=== PATIENT | female | born 1960 | race Caucasian/White ===

== ENCOUNTER 2016-10-31 13:10 | Emergency (ER) | payer OTHER ==
[~2016-10-31] VITALS: Ht 170.2 cm; Wt 84.9 kg
[~2016-10-31 13:10] MED LIST: ALPR1TAB6 PO; ASCO500T8 PO; CHOL10003 PO; CINN500C2 PO; CYAN1TAB29 PO; FAMO40TA4 PO; FING0.5C3 PO; HYDR50TA13 PO; IBUP1TAB11 PO; LAMO100T PO; MULT-257 PO; MULT-672 PO; RISP2TAB3 PO; ZIPR80CA3 PO; magnesium PO
[2016-10-31] MEDS ORDERED: PANTOPRAZOLE 40 MG IV IVP ONE (13:30)
[2016-10-31] MEDS ORDERED: ONDANSETRON 2MG/ML, 2ML IVPush ONE (13:30)
[2016-10-31] MEDS ORDERED: SODIUM CHLORIDE 0.9% 1,000ML IVBOLUS ONE (13:30)
[2016-10-31] MEDS ORDERED: HYDROmorphone 1 MG/ML, 1ML IVPush PRN (13:30)
[2016-10-31] MEDS ORDERED: MAALOX/HYOSCYAMINE/LIDOCAINE 45 ML BOTTLE PO ONE (13:30)
[2016-10-31] MEDS ORDERED: PANT40TA5 PO (13:34)
[2016-10-31] MEDS ORDERED: PANTOPRAZOLE 40 MG IV ONE (13:41)
[2016-10-31] MEDS ORDERED: HYDROmorphone 1 MG/ML, 1ML ONE (13:41)
[2016-10-31] MEDS ORDERED: ONDANSETRON 2MG/ML, 2ML ONE (13:42)
[2016-10-31] MEDS ORDERED: MAALOX/HYOSCYAMINE/LIDOCAINE 45 ML BOTTLE ONE (13:42)
[2016-10-31 13:50] LABS: HEMOGLOBIN 12.7 g/dL (11.7-16.4)
[2016-10-31 14:01] LABS: ASPARTATE AMINO TRANSFERASE 31 U/L (15-37); BLOOD UREA NITROGEN 12 mg/dL (7-18)
[2016-10-31] MEDS ORDERED: OXYcodone/APAP 5/325MG TABLET ONE (15:14)
[2016-10-31] MEDS ORDERED: OXYcodone/APAP 10/325MG TABLET ONE (15:17)
[2016-10-31] MEDS ORDERED: OXYcodone/APAP 10/325MG TABLET PO ONE (15:30)
[2016-10-31 16:16] VITALS: BP 119/77
== END 2016-10-31 16:18 | disposition home or self-care (01) ==
LOC: ED 13:52
DX: R10.13 Epigastric pain (principal); Z90.49 Acquired absence of other specified parts of digestive tract; Z90.710 Acquired absence of both cervix and uterus; Z88.6 Allergy status to analgesic agent; Z87.891 Personal history of nicotine dependence
CPT/HCPCS: 36415; 80053; 83690; 85025; 86677; 96361; 96374; 96375; 99284; C9113; J1170; J2405; J7030

== ENCOUNTER → 2017-08-03 | Outpatient (CLI) | payer OTHER ==
[~2017-08-03] MED LIST changes: +PANT40TA5 PO
== END ==
LOC: CFH 10:25
PROVIDERS: ATTEND Genetic Counselor, MS
DX: M51.26 Other intervertebral disc displacement, lumbar region (principal); M48.07 Spinal stenosis, lumbosacral region
CPT/HCPCS: 72148

== ENCOUNTER 2017-10-16 05:18 | Inpatient (IN) | payer OTHER ==
[2017-10-15 11:39] LABS: MICROSCOPIC NOT IND
[2017-10-15 11:40] LABS: BASOPHILS # (AUTO) 0.01 x10^3/uL (0-0.1); BASOPHILS % (AUTO) 0 % (0-1); EOSINOPHILS # (AUTO) 0.13 x10^3/uL (0-0.4); EOSINOPHILS % (AUTO) 3 % (1-7); LYMPHOCYTES # (AUTO) 0.33 x10^3/uL (1-3.4); LYMPHOCYTES % (AUTO) 7 % (22-44); MD NO; MEAN CORPUSCULAR HEMOGLOBIN 32.1 pg (27.0-34.8); MEAN CORPUSCULAR VOLUME 94.3 fL (80-100); MEAN PLATELET VOLUME 7.4 fL (7.4-10.4); MONOCYTES # (AUTO) 0.44 x10^3/uL (0.2-0.8); MONOCYTES % (AUTO) 10 % (2-9); NEUTROPHILS # (AUTO) 3.69 x10^3/uL (1.8-6.8); NEUTROPHILS % (AUTO) 80 % (42-75); PLATELET COUNT 302 x10^3/uL (130-400); RED BLOOD COUNT 4.12 x10^6/uL (3.82-5.3); RED CELL DISTRIBUTION WIDTH 12.3 % (9.6-15.2)
[2017-10-15 11:47] LABS: CULTURE INDICATED? NO; INTERNATIONAL NORMALIZED RATIO 1.05 (0.93-1.1); PROTHROMBIN TIME 10.9 Seconds (9.6-11.5)
[2017-10-15 11:50] LABS: ANION GAP 5 mmol/L (5-15); CALCIUM 8.7 mg/dL (8.5-10.1); CHLORIDE 106 mmol/L (98-107); CREATININE 0.96 mg/dL (0.55-1.02)
[~2017-10-16] VITALS: Ht 170.2 cm; Wt 104.2 kg
[~2017-10-16 05:18] MED LIST changes: +CALCIUM PO; +DIPH50CA62 PO; +GINK120T3 PO; +METH750T2 PO; +MIRALAX; +OXYC1TAB8 PO; +TURMERIC PO; +[UNRECOGNIZED DRUG - CODE] PO
[2017-10-16 05:43] VITALS: BP 119/79
[2017-10-16] MEDS ORDERED: BUPIVACAINE/PF 0.5% ONE (06:58)
[2017-10-16] MEDS ORDERED: BACITRACIN 50,000 UNIT ONE (06:59)
[2017-10-16] MEDS ORDERED: VANCOMYCIN 1,000 MG ONE (06:59)
[2017-10-16] MEDS ORDERED: EPINEPHRINE 1 MG/ML, 1ML ONE (06:59)
[2017-10-16] MEDS ORDERED: THROMBIN 5,000 UNIT VIAL TP ONE (06:59)
[2017-10-16] MEDS ORDERED: PROPOFOL 10 MG/ML, 20ML ONE (07:07)
[2017-10-16] MEDS ORDERED: ROCURONIUM 10MG/ML,5ML ONE (07:07)
[2017-10-16] MEDS ORDERED: CEFAZOLIN 1,000 MG ONE ×2 (07:08)
[2017-10-16] MEDS ORDERED: FENTANYL PF 250 MCG/5ML ONE (07:20)
[2017-10-16] MEDS ORDERED: MIDAZOLAM 1 MG/ML, 2ML ONE (07:20)
[2017-10-16] MEDS ORDERED: hydrALAzine 20 MG/ML, 1ML IV PRN (08:00)
[2017-10-16] MEDS ORDERED: EPHEDRINE 50 MG/ML, 1ML IVPush PRN (08:00)
[2017-10-16] MEDS ORDERED: OXYcodone 5 MG/5 ML ORAL.SOL UDC PO PRN (08:00)
[2017-10-16] MEDS ORDERED: HYDROmorphone 1 MG/ML, 1ML IV PRN (08:00)
[2017-10-16] MEDS ORDERED: FENTANYL PF 100 MCG/2ML IV PRN (08:00)
[2017-10-16] MEDS ORDERED: PROMETHAZINE 25 MG/ML, 1ML IV PRN (08:00)
[2017-10-16] MEDS ORDERED: ACETAMINOPHEN 325 MG TABLET PO PRN (08:00)
[2017-10-16] MEDS ORDERED: DIAZEPAM 5 MG/ML, 2ML IVPush PRN (08:00)
[2017-10-16] MEDS ORDERED: METOPROLOL 1 MG/ML, 5ML IV PRN (08:00)
[2017-10-16] MEDS ORDERED: MEPERIDINE/PF 25MG/0.5ML IVPush PRN (08:00)
[2017-10-16] MEDS ORDERED: ONDANSETRON 2MG/ML, 2ML IVPush PRN (08:00)
[2017-10-16] MEDS ORDERED: LABETALOL 5MG/ML, 20ML IV PRN ×2 (08:00→10:00)
[2017-10-16] MEDS ORDERED: ALBUTEROL SULFATE 2.5 MG/3 ML NPPB PRN (08:00)
[2017-10-16] MEDS ORDERED: NEOSTIGMINE 1 MG/ML, 10ML ONE (08:04)
[2017-10-16] MEDS ORDERED: GLYCOPYRROLATE 0.4 MG/2 ML, 2ML ONE (08:04)
[2017-10-16] MEDS ORDERED: ONDANSETRON 2MG/ML, 2ML ONE ×2 (08:04→08:28)
[2017-10-16] MEDS ORDERED: DEXAMETHASONE 4 MG/ML, 1ML ONE (08:04)
[2017-10-16] MEDS ORDERED: OXYcodone 5 MG/5 ML ORAL.SOL UDC ONE (08:27)
[2017-10-16 09:22] VITALS: BP 118/84
[2017-10-16] MEDS ORDERED: HYDROmorphone 1 MG/ML, 1ML IVPush PRN (10:00)
[2017-10-16] MEDS: D5%-0.9% NACL+KCL 20MEQ 1,000 ML IV SCH ×2 (10:00→20:21)
[2017-10-16] MEDS ORDERED: METHOCARBAMOL 1,000 MG in DEXTROSE 5% 100 ML IV ONE (10:00)
[2017-10-16] MEDS ORDERED: PROMETHAZINE 25 MG/ML, 1ML IM PRN (10:00)
[2017-10-16] MEDS ORDERED: BISACODYL 10 MG SUPP PR PRN (10:00)
[2017-10-16] MEDS ORDERED: MAGNESIUM HYDROXIDE 8%, 30ML UDC PO PRN (10:00)
[2017-10-16] MEDS ORDERED: VANCOMYCIN PER PHARMACY MC PRN (10:00)
[2017-10-16] MEDS ORDERED: ONDANSETRON 2MG/ML, 2ML IV PRN (10:00)
[2017-10-16] MEDS ORDERED: PHARMACOKINETIC CONSULTATION MC ONE (10:00)
[2017-10-16] MEDS ORDERED: DIPHENHYDRAMINE 50 MG CAPSULE PO PRN (10:00)
[2017-10-16] MEDS ORDERED: OXYcodone/APAP 10/325MG TABLET PO PRN (10:00)
[2017-10-16] MEDS ORDERED: PHARMACOKINETIC MONITORING MC PRN (10:00)
[2017-10-16] MEDS ORDERED: PANTOPROZOLE 40MG TABLET ONE (12:05)
[2017-10-16] MEDS: CEFEPIME 2 GM in DEXTROSE 5% 100 ML IV SCH ×2 (12:07→20:21)
[2017-10-16 13:32] VITALS: BP 120/71
[2017-10-16] MEDS: METHOCARBAMOL 750 MG TABLET PO SCH ×2 (13:33→21:26)
[2017-10-16] MEDS: PANTOPRAZOLE 20MG TABLET PO SCH (13:43)
[2017-10-16] MEDS: VANCOMYCIN 1,500 MG in SODIUM CHLORIDE 0.9% 250 ML IV SCH (13:43)
[2017-10-16] MEDS: METHOCARBAMOL 750 MG in DEXTROSE 5% 100 ML IV SCH (17:18)
[2017-10-16 18:46] VITALS: BP 115/73
[2017-10-16] MEDS ORDERED: MAGNESIUM CITRATE 300ML ORAL SOL PO PRN (20:30)
[2017-10-16] MEDS ORDERED: FINGOLIMOD 0.5 MG HOMEMEDPO SCH ×2 (21:00)
[2017-10-16] MEDS ORDERED: ZIPRASIDONE 40MG CAPSULE PO SCH (21:00)
[2017-10-16] MEDS ORDERED: DIPHENHYDRAMINE 50 MG CAPSULE PO SCH (21:00)
[2017-10-16] MEDS ORDERED: ZOLPIDEM 5MG TABLET PO PRN (21:00)
[2017-10-16] MEDS: LAMOTRIGINE 100 MG TABLET PO SCH (21:27)
[2017-10-17] MEDS: METHOCARBAMOL 750 MG in DEXTROSE 5% 100 ML IV SCH ×2 (01:19→08:12)
[2017-10-17] MEDS: VANCOMYCIN 1,500 MG in SODIUM CHLORIDE 0.9% 250 ML IV SCH ×2 (02:28→13:13)
[2017-10-17 02:54] VITALS: BP 102/67
[2017-10-17] MEDS: CEFEPIME 2 GM in DEXTROSE 5% 100 ML IV SCH ×2 (04:37→12:18)
[2017-10-17 05:18] LABS: CREATININE 0.87 mg/dL (0.55-1.02)
[2017-10-17] MEDS: D5%-0.9% NACL+KCL 20MEQ 1,000 ML IV SCH (06:00)
[2017-10-17 07:38] VITALS: BP 97/58
[2017-10-17] MEDS: PANTOPRAZOLE 20MG TABLET PO SCH (08:32)
[2017-10-17] MEDS: LAMOTRIGINE 100 MG TABLET PO SCH (08:32)
[2017-10-17] MEDS: METHOCARBAMOL 750 MG TABLET PO SCH (08:32)
[2017-10-17] MEDS ORDERED: FINGOLIMOD HCL 0.5 MG HOMEMEDPO SCH (09:00)
[2017-10-17] MEDS ORDERED: SENNA/DOCUSATE TABLET PO SCH (09:00)
[2017-10-17] MEDS ORDERED: CLIN300C8 PO (10:01)
[2017-10-17 12:48] VITALS: BP 114/77
[2017-10-18] MEDS ORDERED: METHOCARBAMOL 750 MG TABLET PO SCH (10:00)
== END 2017-10-17 15:35 | disposition home or self-care (01) | DRG 858 ==
LOC: 4NOR 05:18 → EDSTATUS 07:30
PROVIDERS: ADMIT Neurological Surgery; ATTEND Neurological Surgery
PROC: 0JB70ZZ Excision of Back Subcutaneous Tissue and Fascia, Open Approach (ICD-10-PCS; 2017-10-16)
PROC: 01NB0ZZ Release Lumbar Nerve, Open Approach (ICD-10-PCS; principal; 2017-10-16 07:30)
DX: T81.4XXA Infection following a procedure, initial encounter (principal); Y83.8 Other surgical procedures as the cause of abnormal reaction of the patient, or of later complication, without mention of misadventure at the time of the procedure; Y92.89 Other specified places as the place of occurrence of the external cause
CPT/HCPCS: 36415; 80048; 81003; 82565; 84520; 85025; 85610; 85730; 87070; 87075; 87205; J0171; J0690; J1100; J2250; J2405; J2704; J2710; J3010; J3370; J3490; J2800; J3480; J7050

== ENCOUNTER 2017-11-21 01:16 | Emergency (ER) | payer OTHER ==
[~2017-11-21] VITALS: Ht 170.2 cm; Wt 88.5 kg
[~2017-11-21 01:16] MED LIST changes: +CLIN300C8 PO
[2017-11-21 01:22] VITALS: BP 126/81
[2017-11-21] MEDS ORDERED: LORazepam 2 MG/ML, 1ML ONE (01:51)
[2017-11-21] MEDS ORDERED: SODIUM CHLORIDE FLUSH 10ML SYR IVF ONE (02:00)
[2017-11-21] MEDS ORDERED: LORazepam 2 MG/ML, 1ML IVPush ONE (02:00)
[2017-11-21 02:02] LABS: BASOPHILS # (AUTO) 0.01 x10^3/uL (0-0.1); BASOPHILS % (AUTO) 0 % (0-1); EOSINOPHILS # (AUTO) 0.05 x10^3/uL (0-0.4); EOSINOPHILS % (AUTO) 1 % (1-7); LYMPHOCYTES # (AUTO) 0.44 x10^3/uL (1-3.4); LYMPHOCYTES % (AUTO) 10 % (22-44); MD NO; MEAN CORPUSCULAR HEMOGLOBIN 32.3 pg (27.0-34.8); MEAN CORPUSCULAR HGB CONC 34.8 g/dL (32.4-35.8); MEAN CORPUSCULAR VOLUME 92.8 fL (80-100); MEAN PLATELET VOLUME 7.5 fL (7.4-10.4); MONOCYTES # (AUTO) 0.37 x10^3/uL (0.2-0.8); MONOCYTES % (AUTO) 9 % (2-9); NEUTROPHILS # (AUTO) 3.37 x10^3/uL (1.8-6.8); NEUTROPHILS % (AUTO) 80 % (42-75); PLATELET COUNT 358 x10^3/uL (130-400); RED BLOOD COUNT 4.06 x10^6/uL (3.82-5.3)
[2017-11-21 02:10] LABS: ALANINE AMINOTRANSFERASE 81 U/L (12-78); ALBUMIN 3.8 g/dL (3.4-5.0); ANION GAP 9 mmol/L (5-15); CHLORIDE 107 mmol/L (98-107)
[2017-11-21 02:15] LABS: ALKALINE PHOSPHATASE 128 U/L (45-117); BILIRUBIN,TOTAL 0.5 mg/dL (0.2-1.0); TOTAL PROTEIN 7.3 g/dL (6.4-8.2); TROPONIN I < 0.015 ng/mL (0.000-0.045)
[2017-11-21] MEDS ORDERED: MAALOX/HYOSCYAMINE/LIDOCAINE 45 ML BTL ONE (02:59)
[2017-11-21] MEDS ORDERED: MAALOX/HYOSCYAMINE/LIDOCAINE 45 ML BTL PO ONE (03:00)
== END 2017-11-21 03:11 | disposition home or self-care (01) ==
LOC: ED 03:05
DX: F41.1 Generalized anxiety disorder (principal); R07.89 Other chest pain; R06.4 Hyperventilation; R10.13 Epigastric pain; F32.9 Major depressive disorder, single episode, unspecified; G35 Multiple sclerosis; R11.2 Nausea with vomiting, unspecified; Z87.891 Personal history of nicotine dependence
CPT/HCPCS: 36415; 71045; 80053; 84484; 85025; 93005; 96374; 99285; J2060

== ENCOUNTER 2018-01-12 16:52 | Emergency (ER) | payer OTHER ==
[~2018-01-12] VITALS: Ht 170.2 cm; Wt 86.0 kg
[2018-01-12] MEDS ORDERED: SODIUM CHLORIDE FLUSH 10ML SYR IVF ONE (17:30)
[2018-01-12 17:46] LABS: BASOPHILS # (AUTO) 0.03 x10^3/uL (0-0.1); BASOPHILS % (AUTO) 1 % (0-1); EOSINOPHILS # (AUTO) 0.04 x10^3/uL (0-0.4); EOSINOPHILS % (AUTO) 1 % (1-7); LYMPHOCYTES # (AUTO) 0.42 x10^3/uL (1-3.4); LYMPHOCYTES % (AUTO) 10 % (22-44); MD NO; MEAN CORPUSCULAR HEMOGLOBIN 31.7 pg (27.0-34.8); MEAN CORPUSCULAR HGB CONC 33.6 g/dL (32.4-35.8); MEAN CORPUSCULAR VOLUME 94.4 fL (80-100); MEAN PLATELET VOLUME 7.6 fL (7.4-10.4); MONOCYTES # (AUTO) 0.61 x10^3/uL (0.2-0.8); MONOCYTES % (AUTO) 15 % (2-9); NEUTROPHILS # (AUTO) 3.02 x10^3/uL (1.8-6.8); NEUTROPHILS % (AUTO) 73 % (42-75); PLATELET COUNT 347 x10^3/uL (130-400); RED BLOOD COUNT 4.41 x10^6/uL (3.82-5.3); RED CELL DISTRIBUTION WIDTH 13.3 % (9.6-15.2)
[2018-01-12 17:50] LABS: ALANINE AMINOTRANSFERASE 64 U/L (12-78); ALBUMIN 3.8 g/dL (3.4-5.0); ANION GAP 8 mmol/L (5-15); CALCIUM 9.1 mg/dL (8.5-10.1); CHLORIDE 105 mmol/L (98-107); CREATININE 1.11 mg/dL (0.55-1.02)
[2018-01-12 17:54] LABS: ALKALINE PHOSPHATASE 93 U/L (45-117); BILIRUBIN,TOTAL 0.4 mg/dL (0.2-1.0); TOTAL PROTEIN 7.3 g/dL (6.4-8.2); TROPONIN I < 0.015 ng/mL (0.000-0.045)
[2018-01-12] MEDS ORDERED: predniSONE 50MG TABLET PO STA (19:33)
[2018-01-12] MEDS ORDERED: LORazepam 1MG TABLET ONE ×2 (19:38→20:38)
[2018-01-12] MEDS ORDERED: LORazepam 1MG TABLET PO ONE ×2 (20:00→20:30)
[2018-01-12] MEDS ORDERED: ZIPRASIDONE 40MG CAPSULE PO ONE ×2 (20:28→21:03)
[2018-01-12] MEDS ORDERED: ZIPRASIDONE 20MG CAPSULE ONE ×2 (20:38→20:40)
[2018-01-12 21:42] VITALS: BP 145/83
== END 2018-01-12 21:43 | disposition home or self-care (01) ==
LOC: ED 19:06
DX: G35 Multiple sclerosis (principal); F41.1 Generalized anxiety disorder
CPT/HCPCS: 36415; 71045; 80053; 84484; 85025; 93005; 99285; J7512

== ENCOUNTER → 2018-01-19 | Outpatient (CLI) | payer OTHER | LOC: CFH 13:51 | PROVIDERS: ATTEND Genetic Counselor, MS | DX: N64.4 Mastodynia (principal) | CPT/HCPCS: 76642; 77066 ==

== ENCOUNTER → 2018-10-08 | Outpatient (CLI) | payer OTHER | END | disposition home or self-care (01) | LOC: RAD 07:56 | PROVIDERS: ATTEND Genetic Counselor, MS | DX: R94.5 Abnormal results of liver function studies (principal); R10.9 Unspecified abdominal pain | CPT/HCPCS: 76700 ==

== ENCOUNTER → 2018-10-20 | Outpatient (CLI) | payer OTHER | END | disposition home or self-care (01) | LOC: CFH 14:26 | PROVIDERS: ATTEND Genetic Counselor, MS | DX: M47.817 Spondylosis without myelopathy or radiculopathy, lumbosacral region (principal); M48.061 Spinal stenosis, lumbar region without neurogenic claudication; M48.07 Spinal stenosis, lumbosacral region; M46.96 Unspecified inflammatory spondylopathy, lumbar region; G89.29 Other chronic pain; Z98.890 Other specified postprocedural states | CPT/HCPCS: 72148 ==

== ENCOUNTER → 2018-11-09 | Outpatient (CLI) | payer OTHER | END | disposition home or self-care (01) | LOC: CFH 12:39 | PROVIDERS: ATTEND Neurological Surgery | DX: M51.16 Intervertebral disc disorders with radiculopathy, lumbar region (principal) | CPT/HCPCS: 72110 ==

== ENCOUNTER → 2019-02-01 | Outpatient (CLI) | payer OTHER | END | disposition home or self-care (01) | LOC: CFH 11:27 | PROVIDERS: ATTEND Genetic Counselor, MS | DX: N64.4 Mastodynia (principal) | CPT/HCPCS: 76642; 77066; G0279 ==

== ENCOUNTER → 2020-03-05 | Outpatient (CLI) | payer OTHER ==
[~2020-03-05] MED LIST changes: -HYDR50TA13 PO; +HYDR50TA99 PO; -LAMO100T PO; +LAMO100T8 PO
== END | disposition home or self-care (01) ==
LOC: CFH 12:02
PROVIDERS: ATTEND Genetic Counselor, MS
DX: Z12.31 Encounter for screening mammogram for malignant neoplasm of breast (principal)
CPT/HCPCS: 76641; 77063; 77067

== ENCOUNTER 2020-06-08 10:18 | Emergency (ER) | payer OTHER ==
[~2020-06-08] VITALS: Ht 175.3 cm; Wt 83.3 kg
[~2020-06-08 10:18] MED LIST changes: -PANT40TA5 PO; +PANT40TA6 PO; -RISP2TAB3 PO; +RISP2TAB80 PO
--- NOTE | 2020-06-08 10:59 | NUR ---
PT C/O SLIGHT HEADACHE, A LITTLE BIT OF A COUGH; VOICE SCRATCHY, PER NORM, FROM MS AND SPEECH IMPEDIMENT. STATES SHE'S BEEN EXPOSED TO COVID FROM AND 5 PEOPLE AT WORK ([employer]). DENIES FEVER, N/V, DIARRHEA, CONSTIIPATION. SENSE OF SMELL AND TASTE INTACT. TOOK TYLENOL YESTERDAY, NONE TODAY.
[2020-06-08 11:07] VITALS: BP 107/75
== END 2020-06-08 11:20 | disposition home or self-care (01) ==
LOC: ED 11:14
DX: B34.9 Viral infection, unspecified (principal); Z20.828 Contact with and (suspected) exposure to other viral communicable diseases; Z90.49 Acquired absence of other specified parts of digestive tract; Z90.710 Acquired absence of both cervix and uterus
CPT/HCPCS: 87635; 99283

== ENCOUNTER 2021-04-02 10:25 | Outpatient (CLI) | payer OTHER ==
[~2021-04-02 10:25] MED LIST changes: +ALPR-585 PO; -ALPR1TAB6 PO; -CLIN300C8 PO; +CLIN300C9 PO; +METH-640 PO; -METH750T2 PO
== END 2021-04-02 23:59 | disposition home or self-care (01) ==
LOC: CFH 10:25
PROVIDERS: ATTEND Genetic Counselor, MS
DX: Z12.31 Encounter for screening mammogram for malignant neoplasm of breast (principal)
CPT/HCPCS: 77063; 77067